=== PATIENT | female | born 1980 | race Hispanic/Latino ===

== ENCOUNTER 2023-07-25 10:11 | Emergency (ER) | payer OTHER ==
[~2023-07-25] VITALS: Ht 157.5 cm; Wt 68.0 kg
[2023-07-25 10:36] LABS: RAPID GROUP A STREP negative (NEGATIVE)
[2023-07-25 10:46] LABS: COVID19 (SARS ANTIGEN RAPID) PRESUMPTIVE NEGATIVE (NEGATIVE)
[2023-07-25 10:47] LABS: INFLUENZA TYPE A Negative For Type A (NEGATIVE); INFLUENZA TYPE B Negative For Type B (NEGATIVE)
[2023-07-25] MEDS ORDERED: LORA10TA7 PO (12:18)
[2023-07-25] MEDS ORDERED: IBUP-2070 PO (12:18)
[2023-07-25] MEDS: LORATADINE 10 MG TABLET PO SCH (12:30)
[2023-07-25] MEDS: LORATADINE 10 MG TABLET ONE (13:28)
[2023-07-25] MEDS: IBUPROFEN 600 MG TABLET ONE (13:29)
[2023-07-25] MEDS: IBUPROFEN 600 MG TABLET PO ONE (13:37)
[2023-07-25 13:45] VITALS: BP 135/78; PULSE 70; RESP 18; O2SAT 100
== END 2023-07-25 14:10 | disposition home or self-care (01) ==
LOC: EDH 10:11
DX: J02.9 Acute pharyngitis, unspecified (principal); Z20.822 Contact with and (suspected) exposure to COVID-19; Z98.890 Other specified postprocedural states
CPT/HCPCS: 87426; 87804; 87880